=== PATIENT | male | born 1990 | race Two or more races ===

== ENCOUNTER 2018-12-06 10:48 | Emergency (ER) | payer MEDICAID, OTHER ==
[~2018-12-06] VITALS: Ht 188 cm; Wt 113.4 kg
[2018-12-06 11:00] VITALS: BP 136/72
[2018-12-06] MEDS ORDERED: PROMETHAZINE-C118 M1 ORAL (11:10)
[2018-12-06] MEDS ORDERED: AMOXICILLIN500 MG ORAL (11:10)
[2018-12-06] MEDS ORDERED: ALBUTEROL SULF8.5 GM INH (11:10)
[2018-12-06 11:21] VITALS: BP 132/74
--- NOTE | 2018-12-06 14:00 | Emergency Room Report ---
History of Present Illness General Chief Complaint: Upper Respiratory Illness Source: Patient Present Illness HPI 28-year-old male presents ED for evaluation. Patient states he's been having a cough for the last 4 months. Cough is dry. Denies fevers or chills. Feels tightness at night. Denies chest pain. Denies history of asthma. States that he does smoke. Denies sick contacts or recent travel. No other aggravating relieving factors. Denies any other associated symptoms Allergies: Coded Allergies: No Known Allergies (Unverified , 12/06/18) Patient History Past Medical History: none Past Surgical History: none Pertinent Family History: none Social History: Denies: smoking, alcohol use, drug use Immunizations: UTD Reviewed Nursing Documentation: PMH: Agreed; PSxH: Agreed Nursing Documentation-PMH Past Medical History: No Stated History Review of Systems All Other Systems: negative except mentioned in HPI Physical Exam Vital Signs Date Time Temp Pulse Resp B/P (MAP) Pulse Ox O2 Delivery O2 Flow Rate FiO2 12/06/18 10:54 97.7 78 18 142/78 96 Room Air Sp02 EP Interpretation: reviewed, normal General Appearance: no apparent distress, alert, GCS 15, non-toxic Head: normocephalic, atraumatic Eyes: bilateral eye normal inspection, bilateral eye PERRL ENT: hearing grossly normal, normal pharynx, no angioedema, normal voice Neck: full range of motion, supple/symm/no masses Respiratory: chest non-tender, lungs clear, normal breath sounds, speaking full sentences Cardiovascular #1: regular rate, rhythm, no edema Cardiovascular #2: 2+ carotid (R), 2+ carotid (L), 2+ radial (R), 2+ radial (L) , 2+ dorsalis pedis (R), 2+ dorsalis pedis (L) Gastrointestinal: normal bowel sounds, non tender, soft, non-distended, no guarding, no rebound Rectal: deferred Genitourinary: normal inspection, no CVA tenderness Musculoskeletal: back normal, gait/station normal, normal range of motion, non- tender Neurologic: alert, oriented x3, responsive, motor strength/tone normal, sensory intact, speech normal Psychiatric: judgement/insight normal, memory normal, mood/affect normal, no suicidal/homicidal ideation Reflexes: 3+ bicep (R), 3+ bicep (L), 3+ tricep (R), 3+ tricep (L), 3+ knee (R) , 3+ knee (L) Skin: normal color, no rash, warm/dry, well hydrated Lymphatic: no adenopathy Medical Decision Making Diagnostic Impression: Primary Impression: Atypical pneumonia ER Course Hospital Course 28-year-old male presents ED complaining of cough x 4 months Differential diagnoses include: URI, pharyngitis, otitis media, asthma Clinical course Patient placed on stretcher. After initial history, physical exam reveals a male in no acute distress. Bilateral TM unremarkable. No pharyngeal erythema. No tonsillar exudates. No lymphadenopathy. lungs clear. abdomen soft. Given history of smoking and persistence of symptoms we will treat as atypical pneumonia. I'll discharge with inhaler, cough medication and antibiotics. Safe for discharge close outpatient follow-up. Does not have a PMD. We'll provide referrals Diagnosis - atypical pneumonia Stable and discharged home with Rx amoxicillin, promethazine/dm, albuterol. stop smoking. Instructed to followup with PMD. Return to ED if symptoms recur or worsen Last Vital Signs Date Time Temp Pulse Resp B/P (MAP) Pulse Ox O2 Delivery O2 Flow Rate FiO2 12/06/18 11:21 98.2 72 17 132/74 99 Room Air Status: improved Disposition: HOME, SELF-CARE Condition: Stable Scripts Amoxicillin* (AMOXIL*) 500 Mg Capsule 500 MG ORAL THREE TIMES A DAY, #21 CAP Prov: Aquiles Camacho MD 12/06/18 Codeine/Promethazine Hcl* (PROMETHAZINE-CODEINE SYRUP*) 118 Ml Syrup 5 ML ORAL Q6H PRN for For Cough, #118 ML 0 Refills Prov: Aquiles Camacho MD 12/06/18 Albuterol Sulfate* (ALBUTEROL SULFATE MDI*) 8.5 Gm Hfa.aer.ad 2 PUFF INH Q6H, #1 EA 0 Refills Prov: Aquiles Camacho MD 12/06/18 Referrals: [facility],REFERRING (PCP) [facility] Patient Instructions: Community-Acquired Pneumonia, Adult, [id number] Aquiles Camacho MD Dec 06, 2018 14:00
== END 2018-12-06 11:22 | disposition home or self-care (01) ==
LOC: EMR 11:15
DX: J18.9 Pneumonia, unspecified organism (principal); F17.200 Nicotine dependence, unspecified, uncomplicated
CPT/HCPCS: 99282